=== PATIENT | male | born 1960 | race Caucasian/White ===

== ENCOUNTER 2017-01-18 13:20 | Day surgery (SDC) | payer OTHER ==
[~2017-01-18] VITALS: Ht 180.3 cm; Wt 113.4 kg
[~2017-01-18 13:20] MED LIST: DOXY20TA5 PO; ENAL20TA PO; ESOM40CA41 PO
[2017-01-18] MEDS ORDERED: Glycopyrrolate 0.2 MG/ML 1mL Inj ONE (13:21)
[2017-01-18] MEDS ORDERED: Ketamine 10 mg/mL 20 mL Inj ONE (13:21)
[2017-01-18] MEDS ORDERED: Propofol 10,000 mCg/mL 20 mL Inj ONE (13:21)
[2017-01-18 14:38] VITALS: BP 125/76; PULSE 69; O2SAT 96
--- NOTE | 2017-01-18 14:59 | PCM.HPANE ---
Patient Data Date of Service: January 18, 2017 Surgeon Admitting Provider: Attending Provider:Bartolo Song MD Primary Care Physician:Liliana Mai Other Provider:Rosie Ochoa Anesthesia Reason for Visit Gerd With Esophagitis Ht/WT & BMI Height (Feet): 5 Height (Inches): 11 Weight (Kilograms): 113.40 Body Mass Index 35.00 Allergies Coded Allergies: No Known Drug Allergies (Verified Allergy, Unknown, 01/17/17) Past Anesthesia History Anesthesia History: Denies:: Abnormal Airway, Anesthesia Reactions, Difficult Intubation, Fam Anesthesia Reaction, Fam Malignant Hypertherm, Malignant Hyperthermia Diabetes History Hx Diabetes?: No MRSA MRSA: No Medications Hypertension Medication: Yes Home Meds Incl Beta Jose: No Reported Medications Esomeprazole Magnesium (Nexium)40 Mg Capsule.dr40 Mg PO DAILY Ref 0 01/17/17 Enalapril Maleate 20 Mg [id number] Mg PO DAILY 01/17/17 Doxycycline Hyclate 20 Mg [id number] Mg PO DAILY 01/17/17 History History of ENT Problems?: No HEENT History: Denies:: Abnormal Airway Difficult Intubation Dysphagia Denture Type: None Teeth Condition: Broken Teeth Tooth Decay Missing Teeth Other HEENT Pertinent History: temporary bridge Hx of Heart Problems?: Yes Cardiovascular History: Positive for:: Hypertension (controlled) Denies:: AICD Atrial Fibrillation Chest Pain Pacemaker Valvular Heart Disease Hx of Respiratory Problem?: Yes Respiratory History: Positive for:: Use of C-PAP Machine Denies:: Asthma COPD Chest Surgery Cough Dyspnea Emphysema Hemoptysis Oxygen Administration Pneumonia Pulmonary Embolism Tuberculosis Use of Inhalers / NEBS Other Resp Pertinent History: non-complicantw/ CPAP, h/o GIORGIO Hx Neurologic Problems?: No Neurological History: Denies:: CVA Seizures TIA Hx of GI Problems?: Yes Gastrointestinal History: Positive for:: Gastroesphageal Reflux Hx of Problems?: No HX of Peritoneal Dialysis: No Hx Musculoskeletal Problems?: No Musculoskeletal History: Denies:: Fibromyalgia Joint Replacement Psycho Social History: Denies:: Anxiety Hx Depression Hx Surgeries?: Yes (tonsils, right thumb) Hx Any Other Health Problems?: Yes Hx Diabetes: No Hx Alcohol Use: Yes (4 times week- beer) Smoking Status: Current Every Day Smoker Heavy Tobacco Smoker Approx How Many Cigarettes/day: 1.5ppd Stop/Bang Treated for Sleep Apnea?: Yes Do You Have a CPAP Machine?: No S-Snoring: Do You Snore Loudly: Yes T-Tired: feel tired, fatigued: No O-Obsered: Observed not breath: Yes P-Blood Pressure: treated: Yes B- Body Mass Index > 35 kg/m2: Yes A- Age over 50: Yes N- Neck Large Circumference: Yes G- Gender Male: Yes GIORGIO Total Score: 7 GIORGIO Risk Assessment: High Risk, =/>3 Yes GIORGIO Category 2: Yes Risk Assessment Category Category 1A: Patient has history of documented sleep apnea, and HAS NOT received any narcotic, sedative or anesthesia administration during this stay. Category 1B: Patient has history of documented sleep apnea, and HAS received any narcotic , sedative or anesthesia administration during this stay Category 2: Patient has SUSPECTED Obstructive Sleep Apnea, and HAS received any narcotic , sedative or anesthesia administration during this stay. Category 3: Patient has SUSPECTED Obstructive Sleep Apnea and HAS NOT received narcotic, sedative or anesthesia administration during this stay. Category 4: Outpatient in Procedural Areas with known sleep apnea or who screen positive for High Risk via the STOP/BANG questionnaire. Exam Exam Vital Signs Vital Signs Date Time Temp Pulse Resp B/P Pulse Ox O2 Delivery O2 Flow Rate FiO2 01/18/17 14:38 36.3 69 125/76 96 Room Air General Appearance: Alert, Oriented X3, Cooperative, No Acute Distress HEENT/AIRWAY: MP 3, Neck Movement (FROM), Mouth Opening (3), Other (TMD3) Lungs: Diminished, Wheezes Heart: Exam Unremarkable, Regular Rate/Rhythm, Normal S1, Normal S2, No Murmurs /Rubs/Gallops Plan Impression Patient chart reviewed, patient interviewed and anesthestic plan with risks, benefits, and alternatives discussed, and informed consent obtained. NPO per Anesth. Guidelines: Yes ASA Physical Status: ASA3 Severe Disease Anesthetic Plan: TIVA Bene/Risks/Altern/Consents: Yes HP Complete Prior to Induction: Yes Vignesh Mcdonald MD January 18, 2017 14:59
[2017-01-18] MEDS: Lactated Ringer's 1,000 ML IV ONE ×2 (15:07→15:18)
[2017-01-18 15:28] VITALS: BP 113/76; PULSE 70; RESP 14; O2SAT 96
[2017-01-18 15:37] VITALS: PULSE 78; RESP 14; O2SAT 98
--- NOTE | 2017-01-18 15:59 | ENDO ---
[address] [address] ENDOSCOPY PROCEDURE PATIENT: JOSE F CLARKE : 1960 MR#: [id number] ADMIT: 01/18/2017 JOB ID: [id number] DATE OF PROCEDURE: 01/18/2017 OPERATION: Esophagogastroduodenoscopy, biopsy, colonoscopy. PREOPERATIVE DIAGNOSIS(ES): Gastroesophageal reflux disease, history of colon polyps. POSTOPERATIVE DIAGNOSIS(ES): 1. Irregular Z-line. 2. Normal colonoscopy. ANESTHESIA: Monitored anesthesia care. COMPLICATIONS: None. BLOOD LOSS: Minimal. DESCRIPTION OF PROCEDURE: After risks and benefits explained to the patient, informed consent was obtained. After anesthesia administered, upper endoscope was inserted into the esophagus, stomach, second portion of duodenum. Mucosa carefully examined. After procedure, the scope was withdrawn and procedure terminated. A colonoscope was inserted per rectum to the cecum. Mucosa carefully examined. Prep of the patient was good. After procedure, the scope withdrawn. FINDINGS: Upon inspection of esophagus, the esophagus was normal without masses, ulcers, or lesions. Z-line located 40 cm from incisors. In the distal lower esophagus , there was an irregular Z-line. Findings in the stomach: The stomach appeared normal without masses, ulcers, lesions. Retroflexion was normal. Duodenal bulb, first and second portion. Multiple biopsies taken of antrum and body of the stomach and distal esophagus. Upon inspection of the anus, no masses, hemorrhoids, ulcers, fissures that were seen. Throughout the entire examination, no polyps masses or lesions. Retroflexion was normal. IMPRESSION: 1. Normal colonoscopy. 2. Irregular Z-line. Status post biopsy. RECOMMENDATION: Await pathology results. Repeat colonoscopy in five years given history of colon polyps. [facility]
--- NOTE | 2017-01-18 16:06 | PCM.ANEP1 ---
Post Anesthesia PACU Phase 1 Assessment Date of Service: January 18, 2017 Vital Signs Vital Signs Date Time Temp Pulse Resp B/P Pulse Ox O2 Delivery O2 Flow Rate FiO2 01/18/17 15:37 78 14 98 Room Air 01/18/17 15:28 35.8 70 14 113/76 96 Room Air 01/18/17 14:38 36.3 69 125/76 96 Room Air Anesthetic Administered: TIVA Level of Alertness: Awake, talking PRABHAKAR's with Equal Strength: Yes Pain: No Pain Scale Score: 0 Nausea or Vomiting: No CV Function & Hydration Stable: Yes Airway Device: none Lungs: Diminished, Wheezes PACU Phase 2 Assessment Complications: No Follow up Care: N/A Patient Instructions Provided: Yes Comments 01/18/17 15:37 78 14 98 Room Air Vignesh Mcdonald MD January 18, 2017 16:06
--- NOTE | 2017-01-20 10:27 | PATH ---
SURGICAL PATHOLOGY Attending Physician:Bartolo Song MD CASE STATUS: Signed Out PATIENT NAME: JOSE F CLARKE PID: [id number] : 1960 DATE COLLECTED:01/18/2017 00:00 SPECIMEN: 1: Stomach, Antrum, Biopsy 2: Gastric, Biopsy 3: Esophagus, Biopsy CLINICAL HISTORY: GERD 1. ANTRUM BXS 2. GASTRIC BXS 3. DISTAL ESOPHAGUS BXS FINAL DIAGNOSIS: 1.GASTRIC ANTRUM BIOPSIES: CHANGES CONSISTENT WITH REACTIVE GASTROPATHY. Negative for evidence of Helicobacter. Negative for intestinal metaplasia. Negative for dysplasia and malignancy. 2.GASTRIC BIOPSIES: MUCOSAL HYPEREMIA WITHOUT ASSOCIATED SIGNIFICANT INFLAMMATION INVOLVING FUNDIC MUCOSA. Negative for evidence of Helicobacter. Negative for intestinal metaplasia. Negative for dysplasia and malignancy. 3.DISTAL ESOPHAGUS BIOPSIES: FRAGMENTS OF SQUAMOUS EPITHELIUM WITH NO GASTRIC-TYPE EPITHELIUM IDENTIFIED. Negative for intraepithelial eosinophils. Reactive epithelial changes, but negative for dysplasia and malignancy. ICD10 K23.0 GROSS DESCRIPTION: The specimen is received in three formalin filled containers labeled with the patient's name. 1). The specimen is sublabeled "antrum" and consists of 2 portions of tissue which aggregate to 0.3 x 0.3 x 0.2 CM. The specimen is entirely submitted in cassette 1A. 2). The specimen is sublabeled "gastric body" and consists of 2 portions of tissue which aggregate to 0.4 x 0.2 x 0.2 CM. The specimen is entirely submitted in cassette 2A. 3). The specimen is sublabeled "distal esophagus" and consists of 2 portions of tissue which aggregate to 0.3 x 0.3 x 0.2 CM. The specimen is entirely submitted in cassette 3A. 01/19/2017 [facility] MICRO DESCRIPTION: See diagnosis. ICD-9 CODES: CPT CODES: 1: 19947 2: 12158 3: 70862 Electronically Signed Out Kulwinder Wilson MD [facility] Pathology [facility] [address] [facility], [place] [address] Technical component performed at [facility], [facility] [address], [place], [address]
== END 2017-01-18 23:59 | disposition home or self-care (01) ==
LOC: END 13:20
PROVIDERS: ATTEND Internal Medicine Gastroenterology
DX: Z12.11 Encounter for screening for malignant neoplasm of colon (principal); Z86.010 Personal history of colon polyps; K31.9 Disease of stomach and duodenum, unspecified; K21.9 Gastro-esophageal reflux disease without esophagitis; I10 Essential (primary) hypertension; G47.33 Obstructive sleep apnea (adult) (pediatric); E78.00 Pure hypercholesterolemia, unspecified; F17.210 Nicotine dependence, cigarettes, uncomplicated
CPT/HCPCS: 43239; G0121; J2250; J7120